=== PATIENT | female | born 1960 | race Caucasian/White ===

== ENCOUNTER 2017-03-06 05:24 | Inpatient (IN) ==
[2017-03-06] MEDS ORDERED: TRANSDERM-SCOP ONE (06:31)
[2017-03-06] MEDS ORDERED: REGLAN ONE (06:31)
[2017-03-06] MEDS ORDERED: PEPCID ONE (06:31)
[2017-03-06] MEDS ORDERED: LR 1,000 ML ONE ×3 (06:31→15:46)
[2017-03-06] MEDS ORDERED: VALIUM ONE (06:32)
[2017-03-06] MEDS ORDERED: CLINDAMYCIN 900 MG/NS 900 MG/50 ML IVPB ONE (06:32)
[2017-03-06] MEDS ORDERED: XYLOCAINE 1%/EPI 1:100,000 ONE ×2 (06:44→11:32)
[2017-03-06] MEDS ORDERED: BSS OPHTH SOLN ONE ×2 (06:44)
[2017-03-06] MEDS ORDERED: BACTROBAN OINTMENT ONE (06:46)
[2017-03-06] MEDS: LABETALOL ONE ×2 (13:35→21:32)
[2017-03-06] MEDS ORDERED: CLINDAMYCIN ONE (15:11)
[2017-03-06] MEDS ORDERED: DIPRIVAN 1% ONE (15:18)
[2017-03-06] MEDS ORDERED: FENTANYL ONE (15:18)
[2017-03-06] MEDS ORDERED: ZOFRAN ONE (15:40)
[2017-03-06] MEDS ORDERED: PHENERGAN ONE (15:40)
[2017-03-06] MEDS ORDERED: LUBRIFRESH PM OPH OINTMENT ONE (15:40)
[2017-03-06] MEDS ORDERED: DECADRON ONE (15:41)
[2017-03-06] MEDS ORDERED: QUELICIN (DOSE) ONE (15:41)
[2017-03-06] MEDS ORDERED: ROBINUL ONE (15:41)
--- NOTE | 2017-03-06 15:54 | OPERATIVE NOTE ---
PROCEDURE DATE: 03/06/2017 PREOPERATIVE DIAGNOSES: 1. Bilateral brow ptosis. 2. Bilateral lower eyelid pseudo-herniated fat and dermatochalasis. 3. 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 POSTOPERATIVE DIAGNOSES: 1. Bilateral brow ptosis. 2. Bilateral lower eyelid pseudo-herniated fat and dermatochalasis. 3. 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 PROCEDURES: 1. Bilateral major face lift. 2. Bilateral endoscopic brow lift. 3. Bilateral lower blepharoplasty. COMPLICATIONS: None. ANESTHESIA: General endotracheal intubation. ESTIMATED BLOOD LOSS: 125. URINE OUTPUT: 425. DESCRIPTION OF PROCEDURE: Patient identified, consented, marked in the holding area, and brought to the operating room, placed in supine position where general anesthesia was induced with endotracheal intubation. This was secured initially with dental floss to the right central incisor upper, and then throughout the case OpSite and Tegaderm used for securing the tube to the lip region. Lower eyelids were addressed first. Pseudo-herniated fat was marked preoperatively. Subciliary incision was created in the right eye after lidocaine was injected across the subciliary region. Skin only flap for 3 mm was elevated and then a skin muscle flap was elevated at a preseptal fashion. Central, medial and lateral fat pads were teased through the orbital septum defects created. Meticulous attention was paid to hemostasis and fat pads were removed. The septum was striped to gain some tightening. This very minimally. Lateral retinacular suspension stitch was performed using a 5-0 P 21 needle, securing this orbicularis muscle laterally to the lateral canthal tendon, the periosteum, and tightened appropriately. The 6-0 Prolene was then used to run the incision, closed with the lateral simple and vertical mattress stitches and several stitches interrupted. Contralateral blepharoplasty was performed in similar fashion in the left lower eyelid. Endoscopic brow lift was then performed with central and lateral optical cavity incisions, marked and injected and performed. A subperiosteal central optical cavity dissection was taken down to the orbital rim and meticulous endoscopic visualization dissection to the orbital rim was performed, and the periosteum was incised at the orbital rim below the brow. Lateral optical incision subgaleal dissection was performed superficial to the superficial layer of the deep temporal fascia. Under endoscopic visualization, the sentinel vein was spared bilaterally, and the lateral orbital rim dissection was performed in standard fashion through the conjoint tendon which was released. Sagittal excision of skin was performed over the vertex scalp and closed after meticulous attention was paid to hemostasis. The end of maciej system was used to fix the brow superiorly per desktop support engineer's instructions, and the wounds were closed with clips. Submental face lift incision was created in the submental crease, and a combination of liposuction and liposculpture was used to remove an adequate amount of submental fullness. Subcutaneous dissection was then performed laterally/bilaterally on the neck and into the jowl area. Right face lift incision was performed and a subcutaneous long flap dissection was elevated down to the submental space created earlier in a subcutaneous plane. SMAS dual vector flap was elevated and secured in both vectors with 3-0 Mersilene stitch secured to the mastoid fascia, and the zygomatic arch posteriorly. Skin was trimmed and secured in layers. A drain was placed Tom[place] in the vertex scalp incision and one in the postauricular incision on each side. The vessel loop drain was then placed in the preauricular extension of the incision. Patient's neck wrap and ointment and Telfa were placed in standard fashion with just a gentle pressure dressing. She was allowed to recover from anesthesia, extubated and transferred to recovery room in stable condition. cc: Marcin Mendoza MD
[2017-03-06] MEDS: DECADRON ONE ×2 (15:58→21:32)
[2017-03-06] MEDS: APRESOLINE ONE (16:00)
[2017-03-06] MEDS: MORPHINE ONE (16:03)
[2017-03-06] MEDS ORDERED: XANAX PO PRN (16:40)
[2017-03-06] MEDS: PHENERGAN IV PRN ×4 (17:29→21:56)
[2017-03-06] MEDS: PERCOCET-5 PO SCH ×2 (17:29→22:05)
[2017-03-06] MEDS: CATAPRES PO PRN (17:29)
[2017-03-06] MEDS: LR 1,000 ML IV SCH (17:30)
[2017-03-06] MEDS: CLINDAMYCIN 600 MG/NS 600 MG/50 ML IVPB IV SCH (17:46)
[2017-03-06] MEDS: XANAX PO SCH (19:13)
[2017-03-06] MEDS: APRESOLINE IV PRN (19:57)
[2017-03-06] MEDS: SODIUM CHLORIDE 0.9% INJ PRN (20:15)
[2017-03-06] MEDS: DILAUDID IV PRN ×2 (20:48→21:56)
[2017-03-06] MEDS: PERIDEX MT SCH (20:51)
[2017-03-06] MEDS ORDERED: LABETALOL IV PRN (21:43)
[2017-03-06] MEDS ORDERED: ZOFRAN IV PRN (22:25)
[2017-03-06] MEDS ORDERED: OFIRMEV 1000 MG/ISOTONIC SOLN 1,000 MG/100 ML BOTTLE IV SCH (22:30)
[2017-03-06] MEDS ORDERED: DDAVP 0.01% NAS ONE (23:15)
[2017-03-07] MEDS: PERCOCET-5 PO SCH ×6 (00:03→23:21)
[2017-03-07] MEDS: DECADRON IV SCH ×3 (00:10→16:24)
[2017-03-07] MEDS: CLINDAMYCIN 600 MG/NS 600 MG/50 ML IVPB IV SCH ×3 (00:10→17:34)
[2017-03-07] MEDS: MORPHINE ONE (02:53)
[2017-03-07] MEDS: APRESOLINE ONE (02:54)
[2017-03-07] MEDS: OFIRMEV 1000 MG/ISOTONIC SOLN 1,000 MG/100 ML BOTTLE IV PRN ×2 (04:18→11:42)
[2017-03-07] MEDS: XANAX PO SCH ×3 (04:21→18:58)
[2017-03-07] MEDS: LR 1,000 ML IV SCH (07:46)
[2017-03-07] MEDS: ZOFRAN IV SCH ×3 (08:30→20:06)
[2017-03-07] MEDS: SODIUM CHLORIDE 0.9% INJ PRN ×2 (08:30→13:02)
[2017-03-07] MEDS: PHENERGAN IV PRN ×2 (08:30→13:02)
[2017-03-07] MEDS: DILAUDID IV PRN (08:47)
[2017-03-07] MEDS: SENOKOT PO SCH ×3 (09:51→17:34)
[2017-03-07] MEDS: PERIDEX MT SCH ×2 (09:51→20:06)
[2017-03-07] MEDS ORDERED: DDAVP 0.01% NAS ONE (12:36)
[2017-03-07] MEDS: APRESOLINE IV PRN (20:57)
[2017-03-08] MEDS: DECADRON IV SCH ×2 (00:01→09:11)
[2017-03-08] MEDS: PERCOCET-5 PO SCH ×2 (00:01→05:50)
[2017-03-08] MEDS: CATAPRES PO PRN (00:39)
[2017-03-08] MEDS: SODIUM CHLORIDE 0.9% INJ PRN (00:51)
[2017-03-08] MEDS: OFIRMEV 1000 MG/ISOTONIC SOLN 1,000 MG/100 ML BOTTLE IV PRN ×2 (00:51→10:43)
[2017-03-08] MEDS: DILAUDID IV PRN (00:51)
[2017-03-08] MEDS: PHENERGAN IV PRN (00:51)
[2017-03-08] MEDS: ZOFRAN IV SCH ×2 (02:05→09:11)
[2017-03-08] MEDS: XANAX PO SCH (05:50)
[2017-03-08] MEDS ORDERED: DDAVP 0.01% NAS ONE (08:00)
[2017-03-08] MEDS: SENOKOT PO SCH (09:10)
[2017-03-08] MEDS: PERIDEX MT SCH (09:11)
[2017-03-08] MEDS: CLINDAMYCIN 600 MG/NS 600 MG/50 ML IVPB IV SCH ×2 (09:23)
[2017-03-08 11:33] VITALS: BP 106/51
--- NOTE | 2017-03-08 16:49 | DISCHARGE SUMMARY ---
ADMISSION DATE: 03/06/2017 DISCHARGE DATE: 03/08/2017 DATE OF PROCEDURE: 03/06/2017 DATE OF DISCHARGE: 03/08/2017 DIAGNOSES: 1. Brow ptosis. 2. Facial rhytids. 3. Lower eyelid pseudoherniated fat. DISCHARGE CONDITION: Stable. HOSPITAL COURSE: This is a patient brought in for cosmetic surgery as outlined in the operative report. She did well postoperatively. She had significant ecchymosis. No evidence of hematoma or any healing problems. Drains were left in until the morning of discharge, where two Jany drains were removed. The vertex scalp drain was left in place, and the vessel loop drains above the ears were backed out near totally. The patient had two doses of DDAVP by intranasal sprays, which I think helped with her bruising. She tolerated her hospital course well , and on the second postoperative day was discharged in the morning following her last dose of IV antibiotics. She will follow up with me in the office on Friday. cc: Marcin Mendoza MD MTDD
== END 2017-03-08 12:37 | disposition home or self-care (01) ==
LOC: SURHOLD 05:24 → EEVIPCON 07:00 → 4N 16:21
PROVIDERS: ADMIT Otolaryngology Otolaryngology/Facial Plastic Surgery; ATTEND Otolaryngology Otolaryngology/Facial Plastic Surgery